=== PATIENT | female | born 1995 | race Caucasian/White ===

== ENCOUNTER 2018-12-24 18:52 | Emergency (ER) | payer OTHER ==
[2018-12-24 19:53] LABS: #Basophils 0.1 thou/uL (0.0-0.2); #Eosinphils 0.1 thou/uL (0.0-0.7); #Lymphocytes 1.3 thou/uL (1.20-3.40); #Monocytes 0.7 thou/uL (0.11-0.59); #Neutrophils 14.1 thou/uL (1.40-6.50); %Basophils 0.4 % (0.0-1.0); %Eosinophils 0.5 % (0.0-10.0); %Lymphocytes 8.1 % (21.0-51.0); %Monocytes 4.2 % (0.0-10.0); %Neutrophils 86.7 % (42.0-75.0); Hemoglobin 13.8 g/dL (12.0-16.0); Mean Corpuscular HGB CONC 34.8 g/dL (32.0-36.0); Mean Corpuscular Hemoglobin 29.6 pg (27.0-31.0); Mean Platelet Volume 6.8 fL (7.4-10.4); Platelet Count 308 thou/uL (130-400); RBC Distribution Width 12.4 % (11.5-14.5); Red Blood Cell (RBC) Count 4.66 mill/uL (4.20-5.40); White Blood Cell (WBC) Count 16.3 thou/uL (4.8-10.8)
[2018-12-24 20:13] LABS: ALT (SGPT) 12 U/L (8-55); AST (SGOT) 11 U/L (5-34); Albumin 4.8 g/dL (3.5-5.0); Alkaline Phosphatase 75 U/L (40-110); Anion Gap 14 mmol/L (10-20); BUN (Urea Nitrogen) 7 mg/dL (7.0-18.7); Bilirubin, Total 1.1 mg/dL (0.2-1.2); Calc. Creatinine Clearance 0 mL/min (70-130); Calcium 9.3 mg/dL (7.8-10.44); Carbon Dioxide 21 mmol/L (22-29); Chloride 105 mmol/L (98-107); Estimated GFR-MDRD Greater than 90; Globulin 2.9 g/dL (2.4-3.5); Glucose 123 mg/dL (70-105); Lipase 21 U/L (8-78); Potassium 3.6 mmol/L (3.5-5.1); Protein, Total 7.7 g/dL (6.0-8.3); Sodium 136 mmol/L (136-145)
[2018-12-24] MEDS ORDERED: Morphine 4 MG/ML VIAL ONE (21:34)
[2018-12-24 21:44] LABS: Bilirubin Small (Negative); Blood, Urine Large (Negative); Glucose, Urine (Dipstick) Negative (Negative); Leukocyte Negative (Negative); Nitrite Positive (Negative); Protein, Urine (Dipstick) > or equal to 300 mg/dL (Neg-Trace); Urobilinogen 0.2 mg/dL (Less than 2)
--- NOTE | 2018-12-24 21:57 | ULT ---
Exam: Pelvic ultrasound HISTORY: Vaginal bleeding, miscarriage. COMPARISON: None TECHNIQUE: Multiple grayscale and color Doppler images were obtained in a transabdominal pelvic ultra sound. Spectral analysis of the Doppler waveforms of the ovaries were performed. FINDINGS: Patient refused endovaginal imaging. There is mild nonspecific heterogeneity of the uterus. Endometrial stripe is slightly heterogeneous i n appearance measuring approximately 1.6 cm. No fluid collection is seen in the endometrial canal to suggest an intrauterine gestation. No free fluid is present. RIGHT OVARY: Normal flow, without focal mass. LEFT OVARY:Normal in appearance. Arterial flow is not definitely visualized within the left ovary. Th is could potentially be positional in origin. This cannot be further evaluated on transabdominal imaging. IMPRESSION: 1. Heterogeneous and mildly thickened endometrium. Findings could be related to either retained produ cts of conception or small amount of hemorrhage in the endometrial canal. 2. Normal appearing bilateral ovaries. Arterial flow is documented in the right ovary. However, arter ial flow was unable to be elicited in the left ovary. This could potentially be related to positioning of the ovary on transabdominal imaging. However, this cannot be further evaluated on this examination. The left ovary is normal in size.
[2018-12-24 21:58] LABS: Clarity Turbid (Clear)
[2018-12-24 21:59] LABS: Bacteria/HPF 4+ HPF (None Seen); RBC/HPF Greater than 50 HPF (0-3); Renal Epithelial 0-3 HPF (None Seen); Squamous Epithelial 0-3 HPF (0-3)
[2018-12-24] MEDS ORDERED: Lorazepam 2 MG/ML VIAL ONE (22:23)
[2018-12-24] MEDS ORDERED: Ketorolac Tromethamine 30 MG/ML VIAL ONE (22:23)
[2018-12-24] MEDS ORDERED: Fentanyl 100 MCG/2 ML VIAL ONE (22:43)
== END 2018-12-24 23:10 | disposition home or self-care (01) ==
LOC: ERS 18:52
DX: O03.4 Incomplete spontaneous abortion without complication (principal)
CPT/HCPCS: 36415; 76856; 80053; 81003; 81015; 83690; 84702; 85025; 86900; 86901; 96372; J1885; J2060; J2270; J3010